=== PATIENT | female | born 1985 | race Two or more races ===

== ENCOUNTER 2016-07-14 20:13 | Emergency (ER) | payer MEDICAID ==
[~2016-07-14] VITALS: Ht 157.5 cm; Wt 63.0 kg
[~2016-07-14 20:13] MED LIST: FERR325T50 PO; PREN-96 PO
[2016-07-14 20:50] LABS: Basophils # (auto) 0 uL; Basophils % (auto) 0.4 % (0.0-2.0); Eosinophils # (auto) 0.2 uL; Eosinophils % (auto) 1.7 % (0.0-7.0); Hematocrit 34.1 % (36.0-46.0); Hemoglobin 11.5 g/dL (12.2-16.2); Lymphocytes # (auto) 2.8 uL; Lymphocytes % (auto) 32.1 % (10.0-50.0); Mean Corpuscular Hemoglobin 28.9 pg (28.0-32.0); Mean Corpuscular Hgb Conc. 33.6 g/dL (32.0-36.0); Mean Corpuscular Volume 86.1 fL (80.0-100.0); Mean Platelet Volume 7.9 fL (7.4-10.4); Monocytes # (auto) 0.4 uL; Monocytes % (auto) 4.5 % (0.0-12.0); Neutrophils # (auto) 5.4 uL; Neutrophils % (auto) 61.3 % (37.0-80.0); Platelet Count (auto) 325 10^3/uL (140-450); Red Cell Distribution Width 13.9 % (11.6-16.0); White Blood Cell 8.8 10^3/uL (4.4-10.8)
[2016-07-14 21:07] LABS: INR 0.94 (0.9-1.15); Partial Thromboplastin Time 29.6 sec (22.64-33.71); Prothrombin Time 10.1 sec (9.37-12.3)
[2016-07-14 21:13] LABS: Albumin 3.7 g/dL (3.4-5.0); Anion Gap 9 (5-15); Aspartate Aminotransferase 14 U/L (15-37); BUN/Creatinine Ratio 13.8; Blood Urea Nitrogen 11 mg/dL (7-18); Calcium 8.5 mg/dL (8.5-10.1); Carbon Dioxide 23 mmol/L (21-32); Chloride 107 mmol/L (98-107); GFR African American 108 mL/min; GFR Non-African American 89 mL/min; Glucose 102 mg/dL (74-106); Potassium 3.3 mmol/L (3.5-5.1); Sodium 139 mmol/L (136-145)
[2016-07-14 21:18] LABS: Alkaline Phosphatase 121 U/L (45-117); Bilirubin, Total 0.1 mg/dL (0.2-1.0); Total Protein 7.7 g/dL (6.4-8.2)
[2016-07-15] MEDS ORDERED: ACETAMINOPHEN 325 MG TAB PO ONE ×2 (03:50→04:00)
[2016-07-15 05:01] VITALS: BP 114/75
== END 2016-07-15 05:21 | disposition home or self-care (01) ==
LOC: ER 20:30
DX: R07.89 Other chest pain (principal); I10 Essential (primary) hypertension
CPT/HCPCS: 36415; 80053; 83735; 84484; 84702; 85025; 85610; 85730; 93005

== ENCOUNTER 2019-05-29 19:01 | Emergency (ER) | payer MEDICAID ==
[~2019-05-29] VITALS: Ht 157.5 cm; Wt 57.2 kg
[2019-05-29 20:08] VITALS: BP 148/85
[2019-05-29] MEDS ORDERED: ONDANSETRON ODT 4 MG TAB PO ONE (22:15)
== END 2019-05-29 23:02 | disposition home or self-care (01) ==
LOC: ER 19:02
DX: R42 Dizziness and giddiness (principal); N30.00 Acute cystitis without hematuria; R51 Headache; I10 Essential (primary) hypertension; Z98.51 Tubal ligation status
CPT/HCPCS: 70450; 99284; Q0162

== ENCOUNTER 2024-03-28 17:08 | Emergency (ER) | payer MEDICAID ==
[~2024-03-28] VITALS: Ht 157.5 cm; Wt 64.0 kg
[2024-03-28 17:23] VITALS: BP 127/82; PULSE 71; RESP 20; O2SAT 99
[2024-03-28 18:49] LABS: Basophils # (auto) 0 10 ^3/uL (0-0.2); Basophils % (auto) 0.3 % (0.0-2.0); Eosinophils # (auto) 0.1 10 ^3/uL (0-0.8); Eosinophils % (auto) 1.5 % (0.0-7.0); Hematocrit 32.5 % (36.0-46.0); Lymphocytes # (auto) 1.6 10 ^3/uL (0.4-5.4); Lymphocytes % (auto) 30.9 % (10.0-50.0); Mean Corpuscular Hgb Conc. 33.9 g/dL (32.0-36.0); Mean Corpuscular Volume 91.3 fL (80.0-100.0); Monocytes # (auto) 0.3 10 ^3/uL (0-1.3); Monocytes % (auto) 5.4 % (0.0-12.0); Neutrophils # (auto) 3.2 10 ^3/uL (1.6-8.6); Neutrophils % (auto) 61.9 % (37.0-80.0); Nucleated Red Blood Cells % 0.1 %; Platelet Count (auto) 232 10^3/uL (140-450); Red Blood Cells 3.56 10^6/uL (4.0-5.20); Red Cell Distribution Width 13.9 % (11.8-14.3); White Blood Cell 5.2 10^3/uL (4.4-10.8)
[2024-03-28 18:50] LABS: Alanine Aminotransferase 18 U/L (7-40); Albumin 4.5 g/dL (3.2-4.8); Alkaline Phosphatase 93 U/L (46-116); Anion Gap 6 (5-15); BUN/Creatinine Ratio 15.1 (10.0-20.0); Blood Urea Nitrogen 11 mg/dL (9-23); Calcium 9.8 mg/dL (8.7-10.4); Carbon Dioxide 25 mmol/L (20-31); Potassium 3.6 mmol/L (3.5-5.1); Sodium 139 mmol/L (136-145)
[2024-03-28 18:51] LABS: Bilirubin, Total 0.3 mg/dL (0.2-1.0); Total Protein 6.6 g/dL (5.7-8.2)
--- NOTE | 2024-03-28 18:55 | ED.PDOC ---
[employer] HPI Comments 38-year-old female who came to the ER for vaginal bleeding. Patient states she has been having vaginal bleeding since December 2023, states vaginal bleeding daily, initially minimal in amount, becoming profuse the past few days. Patient has seen a soil analyst, and was diagnosed of uterine fibroids, was given medications however vaginal bleeding persisted. Denies any possibility of . Chief Complaint: Vaginal Bleed Time Seen by MD: 18:55 Reviewed Notes: Nurses Notes Allergies: Coded Allergies: NO KNOWN ALLERGIES (Unverified , 08/27/15) Home Meds Active Scripts Medroxyprogesterone Acetate (PROVERA) 5 Mg Tab, 1 TAB PO DAILY for 10 Days, #10 TAB 11 Refills Prov:GIULIANO MCBRIDE MD 03/28/24 Reported Medications Ferrous Sulfate (Iron Supplement) 325 Mg Tab, 325 MG PO TID, TAB 11/04/15 Vit W/ Ferrous Fumara ( One Daily) Daily Tab, 1 TAB PO DAILY, #90 TAB 3 Refills 11/04/15 Information Source: Patient Mode of Arrival: Ambulatory Timing: Months Prehospital treatment: None Severity: Mild Vaginal Discharge: None Vaginal Lesions: None Bleeding Quality: Bright Red Vaginal Mass: None Onset Of Mass/Bleeding: Spontaneous Associated Signs and Symptoms: Vaginal Bleeding Past Medical History PAST MEDICAL HISTORY: HTN 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: , 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 History: Uterine Fibroids Family History Family History: Reviewed,noncontributory to illness Social History Smoker: Non-Smoker Alcohol: Denies ETOH Use Drugs: Denies Drug Use Lives In: Home Constitutional: denies: chills, diaphoresis, fatigue, fever, malaise, sweats, weakness, others EENTM: denies: blurred vision, double vision, ear bleeding, ear discharge, ear drainage, ear pain, ear ringing, eye pain, eye redness, hearing loss, mouth pain, mouth swelling, nasal discharge, nose bleeding, nose congestion, nose pain, photophobia, tearing, throat pain, throat swelling, voice changes, others Respiratory: denies: cough, hemoptysis, orthopnea, SOB at rest, shortness of breath, SOB with excertion, stridor, wheezing, others Cardiovascular: denies: chest pain, dizzy spells, diaphoresis, Dyspnea on exertion, edema, irregular heart beat, left arm pain, lightheadedness, pa lpitations, PND, syncope, others Gastrointestinal: denies: abdomen distended, abdominal pain, blood streaked bowels, constipated, diarrhea, dysphagia, difficulty swallowing, hematemesis, melena, nausea, poor appetite, poor fluid intake, rectal bleeding, rectal pain, vomiting, others Genitourinary: reports: abnormal vagina bleeding; denies: burning, dyspareunia, dysuria, flank pain, frequency, hematuria, incontinence, pain, , vagina discharge, urgency, others Neurological: denies: dizziness, fainting, headache, left sided numbness, left sided weakness, numbness, paresthesia, pre-existing deficit, right sided numbness, right sided weakness, seizure, speech problems, tingling, tremors, weakness, others Musculoskeletal: denies: back pain, gout, joint pain, joint swelling, muscle pain, muscle stiffness, neck pain, others Integumetry: denies: bruises, change in color, change in hair/nails, dryness, laceration, lesions, lumps, rash, wounds, others Allergic/Immunocompromised: denies: Difficulty Healing, Frequent Infections, Hives, Itching, others Hematologic/Lymphatic: denies: anemia, blood clots, easy bleeding, easy bruising, swollen glands, others Endocrine: denies: excessive hunger, excessive sweating, excessive thirst, excessive urination, flushing, intolerance to cold, intolerance to heat, unexplained weight gain, unexplained weight loss, others Psychiatric: denies: anxiety, bipolar disorder, depression, hopeless, panic disorder, schizophrenia, sleepless, suicidal, others Physical Exam General Appearance: No Apparent Distress, Normal HEENT: Normal ENT Inspection, Pharynx Normal, TMs Normal Neck: Full Range of Motion, Non-Tender, Normal, Normal Inspection Respiratory: Chest Non-Tender, Lungs Clear, No Accessory Muscle Use, No Respiratory Distress, Normal Breath Sounds Cardiovascular: No Edema, No JVD, No Murmur, No Gallop, Normal Peripheral Pulses, Regular Rate/Rhythm Breast Exam: Deferred Gastrointestinal: No Organomegaly, Non Tender, No Pulsatile Mass, Normal Bowel Sounds, Soft Genitalia: Deferred Pelvic: Deferred Rectal: Deferred Extremities: No calf tenderness, Normal capillary refill, Normal inspection, Normal range of motion, Non-tender, No pedal edema Musculoskeletal : Apperance: Normal Neurologic: Alert, motorcycle assembler II-XII nml as Tested, No Motor Deficits, Normal Affect, Normal Mood, No Sensory Deficits Cerebellar Function: Normal Reflexes: Normal Skin: Dry, Normal Color, Warm Lymphatic: No Adenopathy Was a procedure done? 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) Vaginal Bleeding: Blood Loss Anemia, Menorrhagia, Menometrorrhagia, Menstrual Bleeding, UTI, Other (Uterine fibroids) X-Ray, Labs, Meds, VS Vital Signs Date Time Temp Pulse Resp B/P (MAP) Pulse Ox O2 Delivery O2 Flow Rate FiO2 03/28/24 19:47 Room Air* 0 21 03/28/24 17:23 98.7 71 20 127/82 (97) 99 Lab Test 03/28/24 18:21 Range/Units White Blood Count 5.2 4.4-10.8 10^3/uL Red Blood Count 3.56 L 4.0-5.20 10^6/uL Hemoglobin 11.0 L 12.2-16.2 g/dL Hematocrit 32.5 L 36.0-46.0 % Mean Corpuscular Volume 91.3 80.0-100.0 fL Mean Corpuscular Hemoglobin 31.0 28.0-32.0 pg Mean Corpuscular Hemoglobin Concent 33.9 32.0-36.0 g/dL Red Cell Distribution Width 13.9 11.8-14.3 % Platelet Count 232 140-450 10^3/uL Mean Platelet Volume 7.5 6.9-10.8 fL Neutrophils (%) (Auto) 61.9 37.0-80.0 % Lymphocytes (%) (Auto) 30.9 10.0-50.0 % Monocytes (%) (Auto) 5.4 0.0-12.0 % Eosinophils (%) (Auto) 1.5 0.0-7.0 % Basophils (%) (Auto) 0.3 0.0-2.0 % Neutrophils # (Auto) 3.2 1.6-8.6 10 ^3/uL Lymphocytes # (Auto) 1.6 0.4-5.4 10 ^3/uL Monocytes # (Auto) 0.3 0-1.3 10 ^3/uL Eosinophils # (Auto) 0.1 0-0.8 10 ^3/uL Basophils # (Auto) 0 0-0.2 10 ^3/uL Nucleated Red Blood Cells 0.1 % Prothrombin Time 10.7 9.3-11.8 sec Prothrombin Time INR 1.01 0.9-1.15 Activated Partial Thromboplast Time 27.1 24.5-34.5 SEC Sodium Level 139 136-145 mmol/L Potassium Level 3.6 3.5-5.1 mmol/L Chloride Level 108 H 98-107 mmol/L Carbon Dioxide Level 25 20-31 mmol/L Anion Gap 6 5-15 Blood Urea Nitrogen 11 9-23 mg/dL Creatinine 0.73 0.550-1.02 mg/dL Glomerular Filtration Rate Calc 107 >90 mL/min BUN/Creatinine Ratio 15.1 10.0-20.0 Serum Glucose 106 74-106 mg/dL Calcium Level 9.8 8.7-10.4 mg/dL Total Bilirubin 0.3 0.2-1.0 mg/dL Aspartate Amino Transferase (AST) 12 L 13-40 U/L Alanine Aminotransferase (ALT) 18 7-40 U/L Alkaline Phosphatase 93 46-116 U/L Total Protein 6.6 5.7-8.2 g/dL Albumin 4.5 3.2-4.8 g/dL Beta HCG, Quantitative 0.5 L 1.5-4.2 mIU/mL Time of 1ST Reevaluation: 18:52 Reevaluation 1ST: Unchanged Time of 2ND Reevaluation: 20:00 Patient Education/Counseling: Diagnosis, Treatment Family Education/Counseling: No Family Present Departure 1 Departure Time of Disposition: 20:00 Impression: Primary Impression: Dysfunctional uterine bleeding Additional Impression: Uterine fibroid Disposition: 01 HOME / SELF CARE / HOMELESS Condition: Stable e-Prescriptions Medroxyprogesterone Acetate (PROVERA) 5 Mg Tab 1 TAB PO DAILY for 10 Days, #10 TAB 11 Refills Prov: GIULIANO MCBRIDE MD 03/28/24 Discharged With: Self Critical Care Note Critical Care Time?: No Stability Stability form required: No Heart Score Heart Score: Heart Score Response (Comments) Value History N/A 0 EKG N/A 0 Age N/A 0 Risk Factors N/A 0 Troponin N/A 0 Total 0 I personally scribed for GIULIANO MCBRIDE MD ([email or web address]) on 03/28/24 at 18:55. Electronically submitted by hTeo [email or web address]). GIULIANO MCBRIDE MD Mar 28, 2024 18:55
[2024-03-28 19:06] LABS: INR 1.01 (0.9-1.15); Partial Thromboplastin Time 27.1 SEC (24.5-34.5); Prothrombin Time 10.7 sec (9.3-11.8)
[2024-03-28 19:13] LABS: Aspartate Aminotransferase 12 U/L (13-40); Chloride 108 mmol/L (98-107); Glucose 106 mg/dL (74-106)
[2024-03-28] MEDS ORDERED: MEDR5TAB28 PO (19:18)
== END 2024-03-28 19:50 | disposition home or self-care (01) ==
LOC: ER 17:08
DX: N93.8 Other specified abnormal uterine and vaginal bleeding (principal); I10 Essential (primary) hypertension; D25.9 Leiomyoma of uterus, unspecified; Z98.51 Tubal ligation status; Z79.899 Other long term (current) drug therapy; Z79.01 Long term (current) use of anticoagulants
CPT/HCPCS: 36415; 80053; 84702; 85025; 85610; 85730